=== PATIENT | female | born 1995 | race Caucasian/White ===

== ENCOUNTER 2017-05-28 12:10 | Emergency (ER) | payer OTHER ==
[2017-05-28 12:10] VITALS: BMI 33.6
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
[2017-05-28 13:27] VITALS: BP 127/85; PULSE 98; RESP 18; TEMP 98.1; O2SAT 97
== END 2017-05-28 13:28 | disposition home or self-care (01) ==
LOC: ED 12:10
DX: M79.602 Pain in left arm (principal); M54.9 Dorsalgia, unspecified

== ENCOUNTER 2017-05-29 07:15 | Emergency (ER) | payer OTHER ==
[2017-05-29 07:48] VITALS: RESP 18; TEMP 98.5; O2SAT 100; BMI 34.5
[2017-05-29 09:24] VITALS: BP 120/75; PULSE 98
--- NOTE | 2017-05-29 09:24 | RAD ---
PROCEDURE: Radiographs of the left humerus. HISTORY: r/o fx COMPARISON: None. FINDINGS: BONES: No acute fracture or destructive bony lesion identified. SOFT TISSUES: Normal. OTHER FINDINGS: None. IMPRESSION: Normal radiographs of left humerus.
--- NOTE | 2017-05-29 09:24 | RAD ---
PROCEDURE: Left Hip with peau X-ray Radiographs. HISTORY: r/o fx COMPARISON: None. FINDINGS: BONES: No acute fracture or destructive bony lesion identified. Pelvic ring appears intact including sacroiliac and hip joints bilaterally. Pubic symphysis appears intact. JOINTS: As above. SOFT TISSUES: Normal. OTHER FINDINGS: None. IMPRESSION: No acute fracture of the left hip or throughout the pelvic ring. No dislocation or subluxation left hip joint.
--- NOTE | 2017-05-29 09:26 | RAD ---
PROCEDURE: Left middle finger radiographs. HISTORY: r/o fx COMPARISON: None. TECHNIQUE: AP radiograph of the left hand, as well as spot oblique and lateral images of left middle finger were obtained. FINDINGS: LEFT MIDDLE FINGER: Left middle finger normal, without fracture of focal lesion. Remainder of the left hand (as seen on the AP view) is grossly unremarkable, with obscuring of the index 3 noted due to oximetry device. JOINTS: Normal. SOFT TISSUES: Normal. OTHER FINDINGS: None. IMPRESSION: Normal left middle finger radiographs.
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
== END 2017-05-29 09:47 | disposition home or self-care (01) ==
LOC: ED 07:15
DX: M79.1 Myalgia (principal)